=== PATIENT | male | born 2000 | race Caucasian/White ===

== ENCOUNTER 2024-02-01 19:17 | Inpatient (IN) | payer BC ==
[2024-02-01] MEDS ORDERED: ACETAMINOPHEN 325 MG TABLET (FP) ONE (19:54)
[2024-02-01] MEDS ORDERED: DIPHTH,PERTUSS(ACELL),TET 0.5 ML DISP.SYRIN IM ONE (19:55)
[2024-02-01] MEDS: DIPHTH,PERTUSS(ACELL),TET 0.5 ML DISP.SYRIN IM ONE (20:01)
[2024-02-01] MEDS: ACETAMINOPHEN 325 MG TABLET (FP) PO ONE (20:02)
[2024-02-01 20:07] LABS: HEMOGLOBIN 15.5 G/dL (11.7-16.9); MCH 30.5 pg (25.7-33.7); MCHC 34.5 g/dl (32.0-35.9); MEAN CELL VOLUME 88.5 fl (80-96); MEAN PLT VOLUME 7.9 fl (7.5-11.1); PLATELET COUNT 172.1 10^3/uL (134-434); RBC 5.09 10^6/uL (4.00-5.60); RDW 13.5 % (11.9-15.9); WHITE BLOOD COUNT 8.1 10^3/uL (4.0-10.8)
[2024-02-01 20:34] LABS: ALBUMIN 4.6 g/dl (3.4-5.0); ALK PHOS 50 U/L (45-117); ANION GAP 7 mmol/L (4-13); BILIRUBIN,TOTAL 0.6 mg/dl (0.2-1); CALCIUM 9.6 mg/dl (8.5-10.1); CHLORIDE 103 mmol/L (98-107); CO2 27 mmol/L (21-32); CREATININE 0.9 mg/dl (0.6-1.3); GLUCOSE,RANDOM 88 mg/dl (74-106); POTASSIUM 4.1 mmol/L (3.5-5.1); SGOT/AST 17 U/L (15-37); SGPT/ALT 18 U/L (7-52); SODIUM 137 mmol/L (136-145); TOT PROT 6.9 g/dl (6.4-8.2)
[2024-02-01] MEDS: DALBAVANCIN HCL 1,500 MG in DEXTROSE 5%-WATER - 500 ML IVPB ONE (20:56)
[2024-02-01 21:40] LABS: BASO % 0.8 % (0-2.0); EOS % 8.8 % (0-4.5); LYMPH % 25.6 % (8-40); MONO % 8.1 % (3.8-10.2); NEUT % 56.7 % (42.8-82.8)
[2024-02-01] MEDS ORDERED: LIDO 2%/EPI 1:200000 PRESRVFRE (20 ML SDVIAL) ONE (21:45)
[2024-02-01 22:07] LABS: ERYTHROCYTE SEDIMENTATION RATE 2 mm/hr (0-10)
[2024-02-01] MEDS ORDERED: PIPERACILLIN/TAZOBACTAM 3.375 GM VIAL IVPB ONE (22:07)
[2024-02-01] MEDS: PIPERACILLIN/TAZOB 3.375 GM 3.375 GM in DEXTROSE 5%-WATER - 50 ML IVPB ONE (22:52)
[2024-02-01 23:22] VITALS: BMI 29.0
[2024-02-02] MEDS: KETOROLAC TROMETHAMINE 15 MG/ML VIAL IM ONE (06:40)
[2024-02-02] MEDS: PIPERACILLIN/TAZOB 2.25 GM 2.25 GM in DEXTROSE 5%-WATER - 50 ML IVPB SCH (06:56)
[2024-02-02 07:54] LABS: HEMATOCRIT 44.4 % (35.4-49); HEMOGLOBIN 15.3 G/dL (11.7-16.9); MCH 30.6 pg (25.7-33.7); MCHC 34.5 g/dl (32.0-35.9); MEAN CELL VOLUME 88.6 fl (80-96); PLATELET COUNT 160.2 10^3/uL (134-434); RBC 5.01 10^6/uL (4.00-5.60); RDW 13.5 % (11.9-15.9); WHITE BLOOD COUNT 9.1 10^3/uL (4.0-10.8)
[2024-02-02 08:54] LABS: ANION GAP 6 mmol/L (4-13); CALCIUM 9.4 mg/dl (8.5-10.1); CHLORIDE 105 mmol/L (98-107); CO2 28 mmol/L (21-32); CREATININE 0.9 mg/dl (0.6-1.3); GLUCOSE,RANDOM 109 mg/dl (74-106); MAGNESIUM 1.8 mg/dL (1.8-2.4); POTASSIUM 4.2 mmol/L (3.5-5.1); SODIUM 139 mmol/L (136-145)
[2024-02-02] MEDS: PIPERACILLIN/TAZOB 3.375 GM 3.375 GM in DEXTROSE 5%-WATER - 50 ML IVPB SCH (17:31)
[2024-02-02 18:17] VITALS: RESP 18
[2024-02-03] MEDS ORDERED: PIPERACILLIN/TAZOB 2.25 GM 2.25 GM in DEXTROSE 5%-WATER - 50 ML IVPB SCH (02:00)
[2024-02-03 08:08] LABS: ALBUMIN 4.4 g/dl (3.4-5.0); ALK PHOS 63 U/L (45-117); ANION GAP 6 mmol/L (4-13); BILIRUBIN,TOTAL 0.7 mg/dl (0.2-1); CALCIUM 9.6 mg/dl (8.5-10.1); CHLORIDE 105 mmol/L (98-107); CO2 28 mmol/L (21-32); GLUCOSE,RANDOM 110 mg/dl (74-106); POTASSIUM 4.3 mmol/L (3.5-5.1); SGOT/AST 29 U/L (15-37); SGPT/ALT 38 U/L (7-52); SODIUM 139 mmol/L (136-145); TOT PROT 6.9 g/dl (6.4-8.2)
[2024-02-03 09:25] LABS: BASO % 0.8 % (0-2.0); EOS % 11.8 % (0-4.5); HEMATOCRIT 44.8 % (35.4-49); HEMOGLOBIN 16.1 GM/dL (11.7-16.9); LYMPH % 25.2 % (8-40); MCH 30.9 pg (25.7-33.7); MCHC 35.9 g/dl (32.0-35.9); MEAN PLT VOLUME 7.9 fl (7.5-11.1); MONO % 7.8 % (3.8-10.2); NEUT % 54.4 % (42.8-82.8); PLATELET COUNT 209 10^3/uL (134-434); RBC 5.21 M/mm3 (4.00-5.60); RDW 13.6 % (11.9-15.9); WHITE BLOOD COUNT 7.5 K/mm3 (4.0-10.0)
[2024-02-03 10:14] VITALS: BP 140/56; PULSE 77; TEMP 98.1
== END 2024-02-03 15:00 | disposition home or self-care (01) | DRG 605 ==
LOC: FER 19:17 → FM/S 22:32
PROVIDERS: ADMIT Internal Medicine; ATTEND Internal Medicine
DX: S91.312A Laceration without foreign body, left foot, initial encounter (principal); Y92.89 Other specified places as the place of occurrence of the external cause; X58.XXXA Exposure to other specified factors, initial encounter; Y93.9 Activity, unspecified; Y99.9 Unspecified external cause status
CPT/HCPCS: 36415; 73630-TC-LT; 73700-TC-RT; 80048; 80053; 83735; 85025; 85027; 85651; 86140; 87070; 87205; 90715; 99285-25; G0378; J0875